=== PATIENT | female | born 1965 | race Caucasian/White ===

== ENCOUNTER 2018-09-08 10:36 | Outpatient (REF) | payer BC, SELFPAY ==
--- NOTE | 2018-09-08 09:45 | PAPFT_PTH ---
PATIENT: Hetal Valencia LOC: [facility] U#:[id number] AGE/SX: 52/F ROOM: RE09/08/[address]: JAMILAH Murrell : 1965 BED: DIS: 09/08/2018 SPEC #: [id number] RECD: 09/08/18 18:05 STATUS: DAKOTAH REKeila #: [id number] PRUDENCE: 09/08/18 09:[address]: Luz Elena Cunningham DEPT: [facility] Cytology RECD BY: Sujatha Henderson ENTERED: 09/08/18 18:06 SP TYPE: PAPFT OTHR DR: Concepción Valenzuela Tissues: 1 - CX/ENDOCX FOR PAP SMEARS Procedures: PAP THIN PREP/UVM Screening HPV DNA PROBE Comments: [id number]
== END 2018-09-08 10:56 ==
LOC: LBN 10:36
PROVIDERS: PCP Nurse Practitioner; Visit Provider Nurse Practitioner Family
DX: Z12.4 Encounter for screening for malignant neoplasm of cervix (principal); Z11.51 Encounter for screening for human papillomavirus (HPV)
CPT/HCPCS: 88142; 87624

== ENCOUNTER 2019-06-26 12:12 | Outpatient (REF) | payer BC, SELFPAY ==
--- NOTE | 2019-06-26 10:30 | PAPFT_PTH ---
PATIENT: Hetal Valencia LOC: [facility] U#:[id number] AGE/SX: 53/F ROOM: RE06/26/[address]: Brianna Maxwell MD : 1965 BED: DIS: 06/26/2019 SPEC #: [id number] RECD: 06/26/19 17:37 STATUS: DAKOTAH REQ #: [id number] PRUDENCE: 06/26/19 10:[address]: Brianna Maxwell DEPT: [facility] Cytology RECD BY: Sujatha Henderson ENTERED: 06/26/19 17:37 SP TYPE: PAPFT OTHR DR: Concepción Valenzuela Tissues: 1 - CX/ENDOCX FOR PAP SMEARS Procedures: PAP THIN PREP/UVM Screening HPV DNA PROBE Comments: [id number]
== END 2019-06-26 12:32 ==
LOC: LBN 12:12
PROVIDERS: PCP Nurse Practitioner; Visit Provider Obstetrics & Gynecology
DX: Z12.4 Encounter for screening for malignant neoplasm of cervix (principal); Z11.51 Encounter for screening for human papillomavirus (HPV)
CPT/HCPCS: 88142; 87624

== ENCOUNTER 2019-08-04 08:41 | Outpatient (CLI) | payer BC, SELFPAY ==
[2019-08-04 09:22] LABS: Abs Immature Grans 0.01 k/cumm (0.0-0.09); Absolute Basophil Count 0.01 k/cumm (0.0-0.2); Absolute Eosinophil Count 0.13 k/cumm (0.0-0.7); Absolute Lymphocyte Count 1.87 k/cumm (1.2-3.4); Absolute Monocyte Count 0.36 k/cumm (0.11-0.7); Absolute Neutrophil Count 2.62 k/cumm (1.2-6.7); Basophils % 0.2; Eosinophils % 2.6; HCT 42.4 % (36.0-46.0); Immature Grans % 0.2; Lymphocytes % 37.4; Mean Corpuscular Hemoglobin 31.3 pg (27.0-33.0); Mean Corpuscular Volume 94.9 fL (80-95); Mean Platelet Volume 10.7 fL (8.0-11.0); Monocytes % 7.2; Neutrophils % 52.4; Platelet Count 218 x1000/uL (130-400); RBC 4.47 m/cumm (4.00-5.20); RBC Distribution Width 12.2 % (11.7-14.6)
[2019-08-04 10:53] LABS: TSH 0.45 uIU/mL (0.36-3.74)
== END 2019-08-04 09:01 ==
PROVIDERS: PCP Nurse Practitioner; Visit Provider Obstetrics & Gynecology
DX: N81.2 Incomplete uterovaginal prolapse (principal); Z01.818 Encounter for other preprocedural examination
CPT/HCPCS: 36415; 86850; 86900; 86901; 84443; 85025

== ENCOUNTER 2019-08-06 07:01 | Observation (INO) | payer BC, SELFPAY ==
[2019-08-06] VITALS (14 sets, daily range): BP systolic 74–130; BP diastolic 40–93; PULSE 67–103; RESP 15–22; TEMP 35.2–36.4; O2SAT 93–99
[2019-08-06] MEDS: Lactated Ringers 1,000 ML 125 ML IV ×3 (08:15→16:29)
--- NOTE | 2019-08-06 10:34 | W.PM.HP.N ---
Date of service: 08/06/19 Time of Service: 10:34 Assessment and Plan Assessment and plan (1) Pelvic organ prolapse quantification stage 4 cystocele: Status: Acute Assessment and plan: discussed options R/B/A to surgery including observation, pessary vs surgery procedure Vaginal hysterectomy anterior and posterior colporraphy reviewed with patient including but not limited to risk bleeding, infection, injury bowel, bladder, ureter, all questions asked and answered consents signed (2) Rectocele with incomplete uterovaginal prolapse: Status: Acute History of Present Illness History of Present Illness Chief Complaint: pelvic prolapse Narrative: 53 yo female with complaints uterine and pelvic prolapse discussed at outpatient visit options observation, pessary vs surgical correction she has requested to proceed with surgical correction Review of Systems All systems reviewed & are unremarkable except as noted in HPI and below PFSH Medical History Acid reflux (Chronic) pt. denies taking medication, states she controls with positioning Hx of temporomandibular joint syndrome (Acute) Hypothyroidism (acquired) (Acute 03/22/17) Multinodular goiter (nontoxic) (Acute 03/22/17) has been needle biopsied. Dr Alfaro [place] [employer] Work[employer] Surgical History EGD - MAC (07/03/17) S/P appendectomy (Acute) S/P cholecystectomy (Acute) Social History Smoking/Tobacco Use Status: Never Drug use: Never History History 9 Para Hx # Term Pregnancies Multiple births Hx # Pregnancies Ectopic pregnancies AB induced Hx Number of Living Children AB spontaneous Meds Home Medications and Allergies Home Medications Medication Instructions Recorded Confirmed Type ascorbic acid (vitamin C) [Vitamin 500 mg PO BID 04/03/13 08/06/19 History C] multivitamin [Multi-Day Vitamins] 1 ea PO DAILY 04/03/13 08/06/19 History cholecalciferol (vitamin D3) 2,000 unit PO DAILY 03/21/15 08/06/19 History levothyroxine 75 mcg PO DAILY 07/03/17 08/06/19 History magnesium oxide 500 mg PO DAILY tab 09/08/18 08/06/19 History ibuprofen 200 mg capsule 400 mg PO Q6H PRN cap 06/26/19 08/06/19 History apple cider vinegar mg PO 08/06/19 History omega-3 fatty acids-fish oil 1 cap PO DAILY 08/06/19 08/06/19 History Allergies Allergy/AdvReac Type Severity Reaction Status Date / Time egg Allergy Severe stomach Verified 08/06/19 07:40 pain and bloating milk Allergy Severe bloating Verified 08/06/19 07:40 and diarrhea wheat Allergy Severe bloating Verified 08/06/19 07:40 nuts Allergy Severe bloating Uncoded 08/06/19 07:41 Exam Narrative Exam Narrative: 53 yo G9 healthy appearing Resp Effort & Inspection: normal respiratory effort Auscultation: clear to auscultation bilaterally Cardio Rate: regular rate Rhythm: regular rhythm Heart Sounds: S1 normal and S2 normal External Female Exam: external appearance normal Other: 3rd degree uterine prolapse cystocele and rectocele Results Last Vital Signs Temp 36.3 C L 08/06/19 07:50 Pulse 80 08/06/19 07:50 Resp 18 08/06/19 07:50 BP 130/93 H 08/06/19 07:50 Pulse Ox 94 L 08/06/19 07:50
[2019-08-06] MEDS: ceFAZolin 2 GM/50 ML BAG IVPB (11:00)
--- NOTE | 2019-08-06 11:59 | UTER_PTH ---
PATIENT: Hetal Valencia LOC: U#:[id number] AGE/SX: 53/F ROOM: 215 RE08/06/[address]: Brianna Maxwell MD : 1965 BED: A DIS: 08/07/2019 SPEC #: [id number] RECD: 08/06/19 18:11 STATUS: DAKOTAH REQ #: [id number] PRUDENCE: 08/06/19 11:[address]: Brianna Maxwell DEPT: Surgical Specimen RECD BY: Sujatha Henderson ENTERED: 08/06/19 18:12 SP TYPE: UTER OTHR DR: Concepción Valenzuela Tissues: 1 - UTERUS W OR W/O OVARIES(NOT TUMOR/PROLAPSE) 2 - VAGINAL BIOPSY Procedures: GROSS AND MICRO LEVEL 2 GROSS AND MICRO LEVEL 4 Comments: [id number]
[2019-08-06] MEDS: Bacitracin 30 GM TUBE (13:52)
[2019-08-06] MEDS: Acetaminophen 500 MG TAB PO ×2 (16:29→23:52)
[2019-08-06] MEDS: diphenhydrAMINE 50 MG/ML VIAL 12.5 MG IVP (18:34)
[2019-08-06] MEDS: Normal Saline Flush 10 ML SYR IV (18:35)
[2019-08-06] MEDS: Docusate Sodium 100 MG CAP PO (20:42)
[2019-08-06] MEDS: Ketorolac 30 MG/ML VIAL IVP (20:43)
[2019-08-06] MEDS: NALBUPHINE 5 MG in Normal Saline 50 ML 100 MG IVPB (21:01)
[2019-08-07 00:37] VITALS: BP 103/71; PULSE 75; RESP 18; TEMP 36.6; O2SAT 97
[2019-08-07] MEDS: Ketorolac 30 MG/ML VIAL IVP ×2 (03:05→09:26)
[2019-08-07 04:25] VITALS: BP 106/60; PULSE 77; RESP 16; TEMP 36.7; O2SAT 97
[2019-08-07] MEDS: Acetaminophen 500 MG TAB PO (05:41)
[2019-08-07 07:55] VITALS: BP 115/73; PULSE 78; RESP 14; TEMP 36.9; O2SAT 98
[2019-08-07] MEDS: Lactated Ringers 1,000 ML 125 ML IV (08:42)
[2019-08-07] MEDS: Levothyroxine 75 MCG TAB PO (09:26)
[2019-08-07] MEDS: Docusate Sodium 100 MG CAP PO (09:26)
--- NOTE | 2019-08-07 09:29 | W.PM.PROGNOT ---
Date of Service Date of service: 08/07/19 Time of Service: 09:29 Assessment and Plan Assessment and plan (1) Pelvic organ prolapse quantification stage 4 cystocele: Status: Acute Assessment and plan: 53 yo female POD#1 VAginal hysterectomy Anterior/Posterior repair stable remove vaginal packing anf melissa this AM trial of void po pain medication (2) Rectocele with incomplete uterovaginal prolapse: Status: Acute Subjective Subjective Interval history since last seen: 53 yo female s/p vaginal hysterectomy anterior /posterior repair doing well postop had dose morphine IV now switching to oral pain medication tolerated regular diet for breakfast Exam Narrative Exam Narrative: appears comfortable Resp Effort & Inspection: normal respiratory effort Auscultation: clear to auscultation bilaterally Cardio Rate: regular rate Rhythm: regular rhythm GI Inspection: normal to inspection Palpation: soft Other: vaginal packing removed Objective Objective Clinical Data: Vital Signs Temperature 36.9 C 08/07/19 07:55 Temperature Source Tympanic 08/07/19 07:55 Pulse 78 08/07/19 07:55 Pulse Rhythm Regular 08/07/19 00:15 Respiratory Rate 14 08/07/19 07:55 Respiratory Effort Non-Labored 08/07/19 00:15 Respiratory Depth Normal 08/07/19 00:15 Respiratory Pattern Normal 08/07/19 00:15 Blood Pressure 115/73 08/07/19 07:55 Pulse Oximetry 98 08/07/19 07:55 Respiratory End-tidal CO2 40 08/06/19 15:23 Oxygen Delivery Method Room Air 08/07/19 07:55 Oxygen Flow Rate 0 08/07/19 07:55 Pain Level 4 08/07/19 09:26 Comment 08/07/19 05:10 Intake & Output 08/06/19 08/06/19 08/07/19 11:59 23:59 11:59 Intake Total 50 / 4003.75 3353.75 / 4003.75 1900 / 1900 Output Total 1800 / 1800 3200 / 3200 Balance 50 2202.75 1553.75 / 220.75 -1300 / -1300 Weight 85.8 kg Intake: IV 50 1962.75 1913.75 / 1962.75 Oral 1440 / 2040 1900 / 1900 Output: Urine 1550 / 1550 3200 / 3200 Estimated Blood Loss 250 / 250 Other: Urine Color Pale Pale Pale Yellow Yellow Urine Appearance Clear Clear Clear Emesis Description None
--- NOTE | 2019-08-07 10:16 | ROE_ITS ---
DATE OF PROCEDURE: August 06, 2019 PREOPERATIVE DIAGNOSIS: Fourth-degree uterine prolapse and cystocele, rectocele, diminished perineal body. POSTOPERATIVE DIAGNOSIS: Same. PROCEDURE: Vaginal hysterectomy, bilateral salpingectomy, anterior and posterior colporrhaphy and pe rineoplasty. SURGEON: Brianna Maxwell M.D. ANALYZER SALES: Wilmer Barclay PA-C ANESTHESIA: General and spinal. COMPLICATIONS: None. ESTIMATED BLOOD LOSS: 300 cc's FLUIDS: 1200 cc's LR FINDINGS: Fourth-degree uterine prolapse and cystocele; midline rectocele. PROCEDURE: The patient was taken to the Operating Room where she was properly identified. She was t hen placed on the operating table in a dorsal supine position and general anesthesia was induced with out difficulty. Prior to inducing general anesthesia, a spinal was performed. She was then placed i n the dorsal lithotomy position. SCD boots were on. She received preoperative antibiotics. She was prepped and draped in a normal sterile fashion. A formal time-out procedure was then performed, co nfirming patient and procedure. A Dunbar catheter was placed. A bivalve speculum was placed with a Mcpherson retractor anteriorly and a short posterior-weighted speculu m placed posteriorly. The cervix was visualized, grasped on the anterior lip with a single-tooth ten aculum. 1% Lidocaine was then injected in a paracervical circumferential fashion. Then using the Rodrick vie cautery a circumferential incision was made in the cervix. Using the curved Jurado scissors, the v agina was dissected away from the cervix. The posterior cul-de-sac was then entered sharply. The sm all posterior weighted speculum was exchanged for the long posterior weighted speculum. Both uterosa cral ligaments were identified, cross-clamped x2 with a [place] clamp, cut and suture ligated in a Hea yaima fashion with #0 Vicryl and held. Attention was then turned anteriorly. The bladder reflection was identified and the anterior cul-de- sac was entered sharply. The curved Jakub clamp was then placed to ensure that the bladder was well away from the operative field. Using the curved Veronica clamps the remainder of the broad ligament w as taken down bilaterally by a series of cross-clamping, cutting and suture ligating with #0 Vicryl. This was continued to the level of the utero-ovarian ligament, cross-clamped x2 with the curved Minnie ey clamp, cut bilaterally, the uterus and cervix was removed and sent to Pathology for permanent eval uation. Each pedicle was first addressed by placing a suture of #0 Vicryl free-tie bilaterally then suture ligated with Vicryl bilaterally. The pedicles were inspected and found to be hemostatic. The right fallopian tube was identified, grasped with a Ej clamp, cross-clamped x2 and the fallo pian tube excised. The pedicle remained hemostatic with one free-tie of #0 Vicryl. Attention was tu rned to the opposite side and again in a similar fashion the fallopian tube was identified, cross-cla mped x2, excised and the pedicle was made hemostatic with a free-tie of #0 Vicryl. Both ovaries were inspected and found to be normal. There were no ovarian cysts present. A moistened sponge stick wa s then placed. The pedicles were inspected and found to be hemostatic. Attention was then turned to then anterior colporrhaphy portion of the procedure. The lateral aspect of the posterior vagina was grasped bilaterally with a Mayi clamp and the vaginal mucosa was incis ed in the midline using the Bovie cautery. The vaginal tissue was dissected away. The pubovesical f ascia was identified and the cystocele defect was closed with #2-0 Vicryl in an interrupted fashion. The vaginal mucosa was trimmed and closed with #0 Vicryl in a running locked fashion. The vaginal c uff was then closed with #0 Vicryl in a running locked fashion. Attention was then turned to the posterior colporrhaphy portion of the procedure. A V-like incision was made over the perineal body; the skin was excised. The vaginal mucosa was then opened in the mid line just below the vaginal cuff. The vaginal tissue was dissected well away. The rectocele defect was closed by reapproximating the fascia in a running fashion with #2-0 Vicryl. The posterior vagin al epithelium was trimmed and closed with #0 Vicryl in a running fashion. The perineal body was reap proximated and the skin was closed in a subcuticular fashion. The Dunbar catheter was left in situ. A vaginal pack was placed, impregnated with Bacitracin. Sponge, lap, needle and instrument counts we re correct x2. The patient was taken to the recovery room in stable condition.
[2019-08-07] MEDS: Ibuprofen 800 MG TAB PO (10:52)
--- NOTE | 2019-08-07 11:35 | PHARADMIT ---
Admission Pharmacy Clinical Review STAGE 4 CYSTOCELE Code Status Full Code Current Weight Wgt-85.8 kg Renally Cleared and Narrow Therapeutic Index Meds NA QTc Value / Action Taken none BP Control, Fever BP-115/73 Tmax- 36.9C Electrolytes reviewed NA DVT Prophylaxis SCDs Opiate Usage / Scheduled Bowel Regimen Ordered Yes Yes Plt/SCr for Heparin / Enoxaparin NA INR for Warfarin NA H/H stable, WBC/Bands NA Antibiotic appropriateness none Cultures and Sensitivities none Surgical ABX d/c within 24 hr NA DM control / Insulin Dosing none Heart Failure (Check EF%) (SALINA's, B-Block, Diuretics) none IV to PO Switch No Home Meds Reviewed Yes Home Meds Not Ordered MagOX, Norethindrone,M-Dinora, Vit-C, Vit-D, [place]-3, Apple Cider Vinegar Comments
--- NOTE | 2019-08-07 14:51 | W.PM.DS.N ---
Date of service: 08/07/19 Time of Service: 14:52 DS: Diagnosis Discharge Diagnosis (1) Pelvic organ prolapse quantification stage 4 cystocele: Status: Acute (2) Rectocele with incomplete uterovaginal prolapse: Status: Acute Discharge Plan Disposition Patient Disposition: HOME Condition: Good Discharge Details Admit Date/Time: 08/06/19 07:01 Admit Provider: Brianna Maxwell Attending Provider: Brianna Maxwell Primary Care Provider: Concepción Valenzuela [facility] Course Hospital Course: Admitted 08/06/19 underwent VaGINAL hYSTERECTOMY anTERIOR/pOSTERIOR COLPORRAPHY WIOTHOUT COMPLICATION. pod#1 TOLERATING REGULAR DIET, AMBULATING AND VOIDING ON OWN DOING WELL ON POSTOPERATIVE PAIN PILLS dISCHARGE HOME IN STABLE CONDITION DISCHARGE INSTRUCTIONS REVIEWED WITH PATIENT AND Home Meds and New Rx's Prescriptions: New hydrocodone-acetaminophen [Vicodin] 5-300 mg tablet 1 tab PO Q6H PRN (Reason: pain) Qty: 7 RF: 0 ibuprofen 800 mg tablet 800 mg PO Q6H PRN (Reason: pain (scale score 4-6)) Qty: 30 RF: 0 ibuprofen [IBU] 800 mg Tablet 800 mg PO Q8H PRN (Reason: Abdominal Discomfort) Qty: 30 RF: 0 acetaminophen [Mapap Extra Strength] 500 mg Tablet 500 mg PO Q4H PRN PRNQty: 30 RF: 0 docusate sodium [Colace] 100 mg Capsule 100 mg PO BID Qty: 60 RF: 0 oxycodone 5 mg capsule 5 mg PO Q6H PRN (Reason: pain) Qty: 10 RF: 0 Continued ibuprofen 200 mg capsule 400 mg PO Q6H PRNRF: 0 multivitamin [Multi-Day] 1 EACH tablet 1 ea PO DAILY RF: 0 ascorbic acid (vitamin C) [Vitamin C] 500 MG tablet 500 mg PO BID RF: 0 cholecalciferol (vitamin D3) 2,000 UNIT tablet 2,000 unit PO DAILY RF: 0 magnesium oxide 250 mg tablet 500 mg PO DAILY RF: 0 levothyroxine 75 MCG tablet 75 mcg PO DAILY RF: 0 apple cider vinegar 600 mg Capsule PO RF: 0 omega-3 fatty acids-fish oil 440-880 mg Capsule 1 cap PO DAILY RF: 0 Discharge Instructions Stand Alone Forms: Nursing Discharge Form, DSU Post Gynecology Surgery Referrals: Brianna Maxwell [ [facility] STAFF PHYSICIAN] - 08/20/19 12:40 pm Activity:: no heavy lifting Equipment/Supplies:: No Equipment Needed Diet:: As Tolerated Discharge Orders Discharge Orders: Discharge Order (Routine); Ordered 08/07/19 Ordered By: Brianna Maxwell DS: Summary Status at Discharge Functional status at discharge: independent ambulation Overall status at discharge: patient is progressing back to baseline Mental Status: mental status grossly normal Speech and Movement: speech and movement normal Mood: congruent mood Affect: normal affect Exam Psych Mental Status: mental status grossly normal Speech and Movement: speech and movement normal Mood: congruent mood Affect: normal affect DS: Data Vitals/I&O Vitals and I&O: Vital Signs Temperature 36.9 C 08/07/19 07:55 Temperature Source Tympanic 08/07/19 07:55 Pulse 78 08/07/19 07:55 Pulse Rhythm Regular 08/07/19 00:15 Respiratory Rate 14 08/07/19 07:55 Respiratory Effort Non-Labored 08/07/19 00:15 Respiratory Depth Normal 08/07/19 00:15 Respiratory Pattern Normal 08/07/19 00:15 Blood Pressure 115/73 08/07/19 07:55 Pulse Oximetry 98 08/07/19 07:55 Respiratory End-tidal CO2 40 08/06/19 15:23 Oxygen Delivery Method Room Air 08/07/19 07:55 Oxygen Flow Rate 0 08/07/19 07:55 Pain Level 4 08/07/19 09:26 Comment 08/07/19 05:10 Intake & Output 08/06/19 08/07/19 08/07/19 23:59 11:59 23:59 Intake Total 3353.75 / 4003.75 2900 / 2900 Output Total 1800 / 1800 3200 / 3200 Balance 1553.75 / 2203.75 -300 / -300 Intake: IV 1913.75 / 1963.75 1000 / 1000 Oral 1440 / 2040 1900 / 1900 Output: Urine 1550 / 1550 3200 / 3200 Estimated Blood Loss 250 / 250 Other: Urine Color Pale Pale Yellow Yellow Urine Appearance Clear Clear Emesis Description None PFSH Medical History Acid reflux (Chronic) pt. denies taking medication, states she controls with positioning Hx of temporomandibular joint syndrome (Acute) Hypothyroidism (acquired) (Acute 03/22/17) Multinodular goiter (nontoxic) (Acute 03/22/17) has been needle biopsied. 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
[2019-08-07 16:00] VITALS: BP 103/67; PULSE 18; RESP 18; TEMP 36; O2SAT 100
[2019-08-07] MEDS: Ondansetron 4 MG/2 ML VIAL IVP (16:18)
[2019-08-07] MEDS: Normal Saline Flush 10 ML SYR IV (16:18)
--- NOTE | 2019-08-07 16:36 | DSE_ITS ---
Date of service: 08/07/19 Time of Service: 16:36 DS: Diagnosis Discharge Diagnosis (1) Pelvic organ prolapse quantification stage 4 cystocele: Status: Acute (2) Rectocele with incomplete uterovaginal prolapse: Status: Acute Discharge Plan Disposition Patient Disposition: HOME Condition: Good Discharge Details Admit Date/Time: 08/06/19 07:01 Admit Provider: Brianna Maxwell Attending Provider: Brianna Maxwell Primary Care Provider: Concepción Valenzuela Hospital Course Hospital Course: Admitted 08/06/19 underwent VaGINAL hYSTERECTOMY anTERIOR/pOSTERIOR COLPORRAPHY WIOTHOUT COMPLICATION. pod#1 TOLERATING REGULAR DIET, AMBULATING AND VOIDING ON OWN DOING WELL ON POSTOPERATIVE PAIN PILLS dISCHARGE HOME IN STABLE CONDITION DISCHARGE INSTRUCTIONS REVIEWED WITH PATIENT AND Home Meds and New Rx's Prescriptions: New hydrocodone-acetaminophen [Vicodin] 5-300 mg tablet 1 tab PO Q6H PRN (Reason: pain) Qty: 7 RF: 0 ibuprofen 800 mg tablet 800 mg PO Q6H PRN (Reason: pain (scale score 4-6)) Qty: 30 RF: 0 ibuprofen [IBU] 800 mg Tablet 800 mg PO Q8H PRN (Reason: Abdominal Discomfort) Qty: 30 RF: 0 acetaminophen [Mapap Extra Strength] 500 mg Tablet 500 mg PO Q4H PRN PRNQty: 30 RF: 0 docusate sodium [Colace] 100 mg Capsule 100 mg PO BID Qty: 60 RF: 0 oxycodone 5 mg capsule 5 mg PO Q6H PRN (Reason: pain) Qty: 10 RF: 0 Continued ibuprofen 200 mg capsule 400 mg PO Q6H PRNRF: 0 multivitamin [Multi-Day] 1 EACH tablet 1 ea PO DAILY RF: 0 ascorbic acid (vitamin C) [Vitamin C] 500 MG tablet 500 mg PO BID RF: 0 cholecalciferol (vitamin D3) 2,000 UNIT tablet 2,000 unit PO DAILY RF: 0 magnesium oxide 250 mg tablet 500 mg PO DAILY RF: 0 levothyroxine 75 MCG tablet 75 mcg PO DAILY RF: 0 apple cider vinegar 600 mg Capsule PO RF: 0 omega-3 fatty acids-fish oil 440-880 mg Capsule 1 cap PO DAILY RF: 0 Discharge Instructions Stand Alone Forms: DSU Post Gynecology Surgery, Nursing Discharge Form Referrals: Brianna Maxwell [ [facility] STAFF PHYSICIAN] - 08/20/19 12:40 pm Activity:: no heavy lifting Equipment/Supplies:: No Equipment Needed Diet:: As Tolerated Discharge Orders Discharge Orders: Discharge Order (Routine); Ordered 08/07/19 Ordered By: Brianna Maxwell DS: Summary Status at Discharge Functional status at discharge: independent ambulation Overall status at discharge: patient is progressing back to baseline Mental Status: mental status grossly normal Speech and Movement: speech and movement normal Mood: congruent mood Affect: normal affect Time Spent with Patient providing and/or coordinating discharge services: Greater than 30 minutes Exam Narrative Exam Narrative: stable post op day #1 Resp Effort & Inspection: normal respiratory effort Auscultation: clear to auscultation bilaterally Cardio Rate: regular rate Rhythm: regular rhythm Heart Sounds: S1 normal and S2 normal GI Inspection: normal to inspection Palpation: soft Other: vaginal pack out minimal spotting voiding on own Psych Mental Status: mental status grossly normal Speech and Movement: speech and movement normal Mood: congruent mood Affect: normal affect DS: Data Vitals/I&O Vitals and I&O: Vital Signs Temperature 36.0 C L 08/07/19 16:00 Temperature Source Tympanic 08/07/19 16:00 Pulse 18 L 08/07/19 16:00 Pulse Rhythm Regular 08/07/19 00:15 Respiratory Rate 18 08/07/19 16:00 Respiratory Effort Non-Labored 08/07/19 00:15 Respiratory Depth Normal 08/07/19 00:15 Respiratory Pattern Normal 08/07/19 00:15 Blood Pressure 103/67 08/07/19 16:00 Pulse Oximetry 100 08/07/19 16:00 Respiratory End-tidal CO2 40 08/06/19 15:23 Oxygen Delivery Method Room Air 08/07/19 16:00 Oxygen Flow Rate 0 08/07/19 16:00 Pain Level 8 08/07/19 16:00 Comment 08/07/19 05:10 Intake & Output 08/06/19 08/07/19 08/07/19 23:59 11:59 23:59 Intake Total 3353.75 / 4003.75 2900 / 2900 Output Total 1800 / 1800 3200 / 3200 Balance 1553.75 / 2203.75 -300 / -300 Intake: IV 1913.75 / 1963.75 1000 / 1000 Oral 1440 / 2040 1900 / 1900 Output: Urine 1550 / 1550 3200 / 3200 Estimated Blood Loss 250 / 250 Other: Urine Color Pale Pale Yellow Yellow Urine Appearance Clear Clear Emesis Description None PFSH Medical History Acid reflux (Chronic) pt. denies taking medication, states she controls with positioning Hx of temporomandibular joint syndrome (Acute) Hypothyroidism (acquired) (Acute 03/22/17) Multinodular goiter (nontoxic) (Acute 03/22/17) has been needle biopsied. 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
== END 2019-08-07 17:24 | disposition home or self-care (01) ==
LOC: MS 17:09 → PDS 17:09
PROVIDERS: Admitting Provider Obstetrics & Gynecology; PCP Nurse Practitioner; Visit Provider Obstetrics & Gynecology
PROC: 0UT97ZZ Resection of Uterus, Via Natural or Artificial Opening (ICD-10-PCS; CPT 58260; principal; 2019-08-06 08:30)
PROC: 0UT97ZZ Resection of Uterus, Via Natural or Artificial Opening (ICD-10-PCS; CPT 57260; 2019-08-06 08:30)
DX: N81.2 Incomplete uterovaginal prolapse (principal); D25.1 Intramural leiomyoma of uterus; D25.0 Submucous leiomyoma of uterus; D25.2 Subserosal leiomyoma of uterus; N83.8 Other noninflammatory disorders of ovary, fallopian tube and broad ligament; E03.9 Hypothyroidism, unspecified; K21.9 Gastro-esophageal reflux disease without esophagitis
CPT/HCPCS: 58262; 57260; 88305; 99239; NC; 88302; 88307; G0378; J0690; J1100; J1200; J1885; J2250; J2270; J2405; J3010; J3490

== ENCOUNTER 2022-06-29 13:19 | Outpatient (REF) | payer MEDICAID, SELFPAY | END 2022-06-29 13:20 | disposition home or self-care (01) | LOC: LBN 13:19 | PROVIDERS: PCP Nurse Practitioner; Visit Provider Obstetrics & Gynecology Gynecology | DX: R30.0 Dysuria (principal); R35.0 Frequency of micturition | CPT/HCPCS: 87086 ==